=== PATIENT | female | born 1995 ===

== ENCOUNTER 2021-06-23 15:53 | Emergency (ER) | payer BC, SELFPAY ==
[2021-06-23 16:07] VITALS: BP 145/86; PULSE 100; RESP 18; TEMP 36.4; O2SAT 97; BMI 68.2
[2021-06-23 16:43] LABS: Basophils % 0.3 %; Eosinophils # 0.2 10^3/uL (0.0-0.8); Eosinophils % 1.5 %; Hematocrit 40.9 % (37.0-47.0); Hemoglobin 12.3 g/dL (11.5-15.3); Lymphocytes # 2.8 10^3/uL (0.8-4.8); Lymphocytes % 22.8 %; Mean Corpuscular HGB Conc 30.1 g/dL (30.0-36.0); Mean Corpuscular Hemoglobin 22.5 pg (28.0-34.0); Mean Corpuscular Volume 74.8 fl (81-99); Mean Platelet Volume 9.9 fL (7.4-10.4); Monocytes # 0.5 10^3/uL (0.2-0.9); Monocytes % 4.2 %; Neutrophils # 8.59 10^3/uL (1.8-7.7); Neutrophils % 70.6 %; Nucleated Red Blood Cells % 0 %; Platelet Count 370 10^3/cmm (130-400); Red Blood Count 5.47 10^6/uL (4.1-5.3); Red Cell Distribution Width 15.4 % (12.1-15.1); White Blood Count 12.2 10^3/uL (4.0-10.0)
--- NOTE | 2021-06-23 16:46 | USR_ITS ---
PROCEDURE INFORMATION: Exam: US Abdomen, Limited; Right Upper Quadrant Exam date and time: 06/23/2021 5:05 PM Age: 25 years old Clinical indication: Abdominal pain; Prior surgery; Surgery date: 6+ months; Surgery type: Appendectomy; Additional info: Ruq pain. Patient was not NPO for the exam. TECHNIQUE: Imaging protocol: US abdomen. Real time ultrasound with image documentation. Limited exam focused on the right upper quadrant. COMPARISON: No relevant prior studies available. FINDINGS: Liver: No masses are seen. Limited visualization. Gallbladder: Gallbladder not visualized. Common bile duct: Bile duct is normal in caliber where visualized measuring 4 mm. Pancreas: Pancreas is obscured by overlying bowel gas. Right kidney: Normal. No mass. No hydronephrosis. Other findings: Technically difficult study secondary to body habitus of the patient. US/US gall bladder [id number] IMPRESSION: Technically difficult study secondary to the body habitus of the patient. Gallbladder not visualized. Common bile duct is within normal caliber where visualized.
[2021-06-23 16:49] LABS: HCG Qualitative Urine. Negative (Negative)
[2021-06-23 16:58] LABS: Urine Appearance Bloody (CLEAR); Urine Color Red (Yellow)
[2021-06-23] MEDS: ondansetron 2 mg/ML SDV 2 mL 4 MG IVP (16:58)
[2021-06-23 16:59] LABS: Add Urine Microscopic? YES; Bilirubin Urine Neg (Negative); Blood Urine 3+ (Negative); Glucose Urine UA Norm (Normal); Ketones Urine Negative (Negative); Leukocyte Esterase Urine 1+ (Negative); Nitrate Urine Negative (Negative); Protein Urine 1+ (Negative); RBC Urine TOO NUMEROUS TO CNT /hpf (0-2); Squamous Epithelial Cell Urine 0-4 /hpf (0-5); Urobilinogen Urine 1 mg/dL (Negative); WBC Urine 40-55 /hpf (0-5); pH Urine 5 (5-7)
[2021-06-23 17:00] LABS: Add Urine Culture? Yes; Bacteria Urine 1+ /hpf
[2021-06-23 17:02] VITALS: RESP 18
[2021-06-23] MEDS: morphine 4 mg/mL SDV 1 mL 6 MG IVP (17:02)
[2021-06-23 17:09] LABS: Alanine Aminotransferase 21 U/L (0-33); Alkaline Phosphatase 83 IU/L (35-105); Anion Gap 14.1 (5-19); Aspartate Amino Transferase 23 U/L (0-32); Blood Urea Nitrogen 13 mg/dL (6-20); Calcium 9.1 mg/dL (8.5-10.5); Carbon Dioxide 24 mmol/L (22-29); Chloride 104 mmol/L (98-107); Creatine Phosphokinase 108 U/L (26-192); Globulin 3.4 g/dL (1.3-4.6); Glomerular Filtration Rate 122.8 mL/min (90-130); Glucose 123 mg/dL (65-115); Osmolality Calculated 287 mOsm/kg (285-295); Potassium 4.1 mmol/L (3.5-5.1); Sodium 138 mmol/L (136-145); Total Bilirubin 0.3 mg/dL (0.15-1.2); Total Protein 7.4 g/dL (6.6-8.7)
[2021-06-23] MEDS: cephALEXin 500 mg Capsule 1000 MG PO (17:25)
--- NOTE | 2021-06-23 17:30 | CTR_ITS ---
PROCEDURE INFORMATION: Exam: CT Abdomen And Pelvis With Contrast Exam date and time: 06/23/2021 6:19 PM Age: 25 years old Clinical indication: Abdominal pain; Patient HX: C/O epigastric/ruq abd pain since last night; Additional info: Ruq pain TECHNIQUE: Imaging protocol: Computed tomography of the abdomen and pelvis with contrast. Radiation optimization: All CT scans at this facility use at least one of these dose optimization techniques: automated exposure control; mA and/or kV adjustment per patient size (includes targeted exams where dose is matched to clinical indication); or iterative reconstruction. Contrast material: OMNI 300; Contrast volume: 95 ml; Contrast route: INTRAVENOUS (IV); COMPARISON: US gall bladder [id number] 06/23/2021 5:05 PM RADIATION DOSE METRICS: Total DLP (mGy-cm): 1857.51 FINDINGS: Liver: Hepatomegaly. Gallbladder and bile ducts: Normal. No calcified stones. No ductal dilation. Pancreas: Normal. No ductal dilation. Spleen: The spleen enlarged measuring 14.7 cm. Adrenal glands: Normal. No mass. Kidneys and ureters: Normal. No hydronephrosis. Stomach and bowel: Unremarkable. No obstruction. No mucosal thickening. Appendix: There has been an appendectomy. Intraperitoneal space: Unremarkable. No free air. No significant fluid collection. Vasculature: Unremarkable. No abdominal aortic aneurysm. Lymph nodes: Unremarkable. No enlarged lymph nodes. Urinary bladder: Unremarkable as visualized. Reproductive: There is a cyst with benign features which appears to arise from the left ovary measuring 7.1 x 7.6 cm in AP/transverse dimensions. A smaller 2.3 cm cystic lesion likely represents a normal follicle. Bones/joints: Unremarkable. No acute fracture. Soft tissues: There is skin thickening about the umbilicus. CT/CT abdomen pelvis w con* [id number] IMPRESSION: 1. There is hepatomegaly and splenomegaly. 2. There is a 7.6 cm cyst with benign features arising from the left ovary.Further evaluation with prompt non-emergent ultrasound is recommended to characterize. (Reference: Jeferson) REFERENCES: Jeferson et al. Management of Incidental Adnexal Findings on CT and MRI: A White Paper of the ACR Incidental Findings Committee, J Am [place] [facility]. 2020 May;17(2):248-254.
--- NOTE | 2021-06-23 17:30 | W.ED.ABDPA2 ---
HPI - Abdominal Pain General: Chief Complaint: Abdominal Pain Stated Complaint: Upper ABD pain, burning in back Time Seen by Provider: 06/23/21 16:14 History of Present Illness: 25-year-old female developed epigastric and right upper quadrant pain shortly after eating last night. Described as burning, radiating through to her back, associated with nausea. The pain got a little bit better through the night, but it is still sore to the touch. No fever. No history of pancreatitis, ulcer disease, or liver problems. LMP-currently on Review of Systems General: Reports: 10 or more systems reviewed and unremarkable except in HPI and below Physical Exam Const: COMMON NORMALS: no acute distress and patient oriented x3 NUTRITIONAL APPEARANCE: obese Eye: SCLERA: sclerae normal Resp: EFFORT & INSPECTION: No tachypneic, No respiratory distress and No labored GI: COMMON NORMALS: Soft to palpation INSPECTION: Yes normal to inspection PALPATION: Yes Soft to palpation and Yes Tenderness to palpation present (GI) Details: RUQ Neuro: COMMON NORMALS: patient oriented x3 and no focal motor deficits Skin: COMMON NORMALS: no rashes or lesions noted GENERAL SKIN EXAM: no rashes or lesions noted Course Vital Signs: Vital signs: Vital Signs Temperature 97.5 F L 06/23/21 16:07 Pulse Rate 95 06/23/21 19:18 Respiratory Rate 16 06/23/21 19:18 Blood Pressure 122/77 06/23/21 19:18 Pulse Oximetry 100 06/23/21 19:18 MDM - Abdominal Pain Medical Decision Making 25 yo with epigastric and RUQ pain. LFTs and lipase wnl. WBC count slightly elevated, UA likely contaminated b/c of menses. Unable to visualize gallbladder on ultrasound due to body habitus. CT abd/pelvis does not show any acute abnormalities of the gallbladder. She does have a left ovarian cyst which will need further work-up. Discussed low-fat diet. She is planning on undergoing bariatric surgery in the upcoming months. Return precautions discussed. Differential Diagnosis Likely pancreatitis (colecystitis, gastritis, ) Lab Data : 06/23/21 16:25 06/23/21 16:25 Labs/Radiology: Radiology Impressions Gallbladder Ultrasound 06/23/21 16:46 IMPRESSION: Technically difficult study secondary to the body habitus of the patient. Gallbladder not visualized. Common bile duct is within normal caliber where visualized. Abdomen/Pelvis CT 06/23/21 17:30 IMPRESSION: 1. There is hepatomegaly and splenomegaly. 2. There is a 7.6 cm cyst with benign features arising from the left ovary.Further evaluation with prompt non-emergent ultrasound is recommended to characterize. (Reference: Jeferson) REFERENCES: Jeferson et al. Management of Incidental Adnexal Findings on CT and MRI: A White Paper of the ACR Incidental Findings Committee, J Am [place] [facility]. 2019;17(2):248-254. Laboratory Results WBC 12.2 10^3/uL (4.0-10.0) H 06/23/21 16:25 RBC 5.47 10^6/uL (4.1-5.3) H 06/23/21 16:25 Hgb 12.3 g/dL (11.5-15.3) 06/23/21 16:25 Hct 40.9 % (37.0-47.0) 06/23/21 16:25 MCV 74.8 fl (81-99) L 06/23/21 16:25 MCH 22.5 pg (28.0-34.0) L 06/23/21 16:25 MCHC 30.1 g/dL (30.0-36.0) 06/23/21 16:25 RDW 15.4 % (12.1-15.1) H 06/23/21 16:25 Plt Count 370 10^3/cmm (130-400) 06/23/21 16:25 MPV 9.9 fL (7.4-10.4) 06/23/21 16:25 Neut % (Auto) 70.6 % 06/23/21 16:25 Lymph % (Auto) 22.8 % 06/23/21 16:25 [place] % (Auto) 4.2 % 06/23/21 16:25 Eos % (Auto) 1.5 % 06/23/21 16:25 Baso % (Auto) 0.3 % 06/23/21 16:25 Neut # (Auto) 8.59 10^3/uL (1.8-7.7) H 06/23/21 16:25 Lymph # (Auto) 2.8 10^3/uL (0.8-4.8) 06/23/21 16:25 [place] # (Auto) 0.5 10^3/uL (0.2-0.9) 06/23/21 16:25 Eos # (Auto) 0.2 10^3/uL (0.0-0.8) 06/23/21 16:25 Baso # (Auto) 0.0 10^3/uL (0.0-0.1) 06/23/21 16:25 Nucleated RBC % (auto) 0 % 06/23/21 16:25 Nucleated RBCs # 0.0 /100WBC 06/23/21 16:25 Sodium 138 mmol/L (136-145) 06/23/21 16:25 Potassium 4.1 mmol/L (3.5-5.1) 06/23/21 16:25 Chloride 104 mmol/L (98-107) 06/23/21 16:25 Carbon Dioxide 24 mmol/L (22-29) 06/23/21 16:25 Anion Gap 14.1 (5-19) 06/23/21 16:25 BUN 13 mg/dL (6-20) 06/23/21 16:25 Creatinine 0.6 mg/dL (0.5-0.9) 06/23/21 16:25 GFR Calculation 122.8 mL/min (90-130) 06/23/21 16:25 Glucose 123 mg/dL (65-115) H 06/23/21 16:25 Calculated Osmolality 287 mOsm/kg (285-295) 06/23/21 16:25 Calcium 9.1 mg/dL (8.5-10.5) 06/23/21 16:25 Total Bilirubin 0.3 mg/dL (0.15-1.2) 06/23/21 16:25 AST 23 U/L (0-32) 06/23/21 16:25 ALT 21 U/L (0-33) 06/23/21 16:25 Alkaline Phosphatase 83 IU/L (35-105) 06/23/21 16:25 Creatine Kinase 108 U/L (26-192) 06/23/21 16:25 Total Protein 7.4 g/dL (6.6-8.7) 06/23/21 16:25 Albumin 4.0 g/dL (3.5-5.2) 06/23/21 16:25 Globulin 3.4 g/dL (1.3-4.6) 06/23/21 16:25 Lipase 23 U/L (13-60) 06/23/21 16:35 HCG, Qual Negative (Negative) 06/23/21 16:42 Urine Color Red (Yellow) 06/23/21 16:42 Urine Appearance Bloody (CLEAR) A 06/23/21 16:42 Urine pH 5 (5-7) 06/23/21 16:42 Ur Specific [place] 1.020 (1.005-1.030) 06/23/21 16:42 Urine Protein 1+ (Negative) H 06/23/21 16:42 Urine Glucose (UA) Norm (Normal) 06/23/21 16:42 Urine Ketones Negative (Negative) 06/23/21 16:42 Urine Blood 3+ (Negative) H 06/23/21 16:42 Urine Nitrate Negative (Negative) 06/23/21 16:42 Urine Bilirubin Neg (Negative) 06/23/21 16:42 Urine Urobilinogen 1 mg/dL (Negative) H 06/23/21 16:42 Ur Leukocyte Esterase 1+ (Negative) H 06/23/21 16:42 Urine RBC Too numerous to cnt /hpf (0-2) H 06/23/21 16:42 Urine WBC 40-55 /hpf (0-5) H 06/23/21 16:42 Ur Squamous Epith Cells 0-4 /hpf (0-5) H 06/23/21 16:42 Amorphous Sediment Not Reportable 06/23/21 16:42 Urine Bacteria 1+ /hpf (NONE) H 06/23/21 16:42 Discharge Plan Discharge Patient Disposition: Home Clinical Impression: Abdominal pain, Abdominal pain, acute, right upper quadrant, Ovarian cyst Condition: Stable Prescriptions: New Levsin/SL 0.125 mg tablet, sublingual 0.125 mg PO Q6H PRN (Reason: dyspepsia) 10 Days Qty: 30 0RF ondansetron 8 mg tablet,disintegrating 8 mg PO Q8H 3 Days Qty: 9 0RF Rx Instructions: 1st dose 1-2 hr before radiation Discharge Orders: Discharge ED (Routine); Ordered 06/23/21 Ordered By: Karen Kim Referrals: Evelio Zaragoza MD [Staff Physician] - (ER followup: L ovarian Cyst, ) Discharge Diet: Low Fat Discharge Activity: Increase activity as tolerated Patient Instructions: Ovarian Cyst (ED), Low Fat Diet (ED), Abdominal Pain (ED) Activity Restrictions/Additional Instructions: Avoid sugary or fatty foods. Schedule follow-up with SENIOR PROGRAM MANAGER for further work-up on your ovarian cyst. Return immediately to the ER if he develops recurrent or worsening pain, vomiting, fever, or any other sudden changes. Stand Alone Forms: Work/School Release Coding Level of Care Code ED Rehab Therapist for [employer] Fwd Exam Detailed
[2021-06-23 18:07] LABS: Lipase 23 U/L (13-60)
[2021-06-23 18:15] VITALS: BP 153/79; PULSE 75; RESP 20; O2SAT 95
[2021-06-23] MEDS: iodixanol 320 mg/mL 100mL Btl IV (18:21)
[2021-06-23] MEDS: acetaminophen 500 mg Tablet 1000 MG PO (18:59)
[2021-06-23 19:18] VITALS: BP 122/77; PULSE 95; RESP 16; O2SAT 100
== END 2021-06-23 19:25 | disposition home or self-care (01) ==
PROVIDERS: Emergency Provider Family Medicine
DX: R10.11 Right upper quadrant pain (principal); N83.202 Unspecified ovarian cyst, left side
CPT/HCPCS: 74177; 76705; 80053; 81001; 81025; 82550; 83690; 85025; 87086; 96374; 96375; 99284; J2270; J2405; Q9967

== ENCOUNTER 2021-06-25 22:42 | Emergency (ER) | payer BC, SELFPAY ==
[2021-06-25 22:50] VITALS: BP 169/96; PULSE 94; RESP 18; TEMP 36.7; O2SAT 97; BMI 68.2
--- NOTE | 2021-06-25 23:03 | ED_ITS ---
HPI - Abdominal Pain General: Chief Complaint: Abdominal Pain Stated Complaint: abdominal pain Time Seen by Provider: 06/25/21 23:02 History of Present Illness: 25-year-old female comes in today with right upper quadrant abdominal pain. Patient was seen 2 days ago for similar pain and was diagnosed with abdominal pain, probable pancreatitis, and left ovarian cyst. Review of the record it was noted that patient did have an ovarian cyst on the left side. Laboratory values were unremarkable except for large amount of blood in the urine. Patient reported that she was on her menstrual cycle. Patient has had appendectomy in the past. Lipase levels were normal. CT of the abdomen noted a ovarian cyst but no other abnormality. Ultrasound of the gallbladder was negative. Patient appears nontoxic. Patient appears in moderate pain. Associated Symptoms: Reports diarrhea, nausea and vomiting; Denies fever(s) Review of Systems General: Reports: 10 or more systems reviewed and unremarkable except in HPI and below Const: Denies: fever(s) Card: Denies: chest pain Resp: Denies: dyspnea GI: Reports: abdominal pain, nausea, vomiting and diarrhea : Reports: vaginal bleeding; Denies: difficulty voiding Psych: Denies: anxiety Physical Exam Const: COMMON NORMALS: alert HENMT: HEAD & SCALP: normal to inspection MOUTH: Normal oral and palatal mucosa present THROAT: posterior oropharynx normal Neck/C-Spine: COMMON NORMALS: full ROM Resp: COMMON NORMALS: normal respiratory effort and clear to auscultation bilaterally AUSCULTATION: clear to auscultation bilaterally Cardio: COMMON NORMALS: regular rate and regular rhythm RATE: regular rate RHYTHM: regular rhythm GI: AUSCULTATION: Yes Hyperactive bowel sounds present PALPATION: Yes Firmness to palpation present (GI) (ruq), Yes Tenderness to palpation present (GI) Details: LUQ and RUQ, Yes Guarding due to palpation present (GI), No Rigid due to palpation and No Rebound tenderness present : COMMON NORMALS: Yes no CVA tenderness BLADDER/KIDNEY EXAM: Yes no CVA tenderness Back/Pelvis: COMMON NORMALS: no CVA tenderness Extremity: COMMON NORMALS: no pedal edema Neuro: SENSORIUM/ORIENTATION: Yes alert Psych: COMMON NORMALS: cooperative Skin: COMMON NORMALS: no rashes or lesions noted GENERAL SKIN EXAM: no rashes or lesions noted Course Vital Signs: Vital signs: Vital Signs Temperature 98.1 F 06/25/21 22:50 Pulse Rate 85 06/26/21 00:37 Respiratory Rate 17 06/26/21 00:37 Blood Pressure 148/108 06/26/21 00:37 Pulse Oximetry 98 06/26/21 00:37 MDM - Abdominal Pain Medical Decision Making 25-year-old female comes in today with some persistent right upper quadrant abdominal pain. Patient does have some episodes of nausea and vomiting and diarrhea. These episodes been going on for 2 to 3 days. Patient was evaluated in the ER 2 or 3 days ago was diagnosed with abdominal pain and an ovarian cyst. Patient was told that likely she had pancreatitis. On exam abdomen remains tender in the right upper quadrant on palpation. Bowel sounds are hyperactive. Skin is warm and dry. Vital signs are normal except for some mild elevation in blood pressure. Differential diagnosis includes but not limited to pancreatitis, cholecystitis, hepatomegaly. I reviewed the CT scan from 2 days ago and it was noted the patient did have a significantly enlarged liver and pancreas, and a very large ovarian cyst on the left ovary. Laboratory values repeated today showed a mild elevation in white blood cell count of 13,000, CMP was unremarkable, liver enzymes were normal, and lipase was normal. I do not believe patient has pancreatitis. Believe patient's abdominal pain may be due to her enlarged liver. Patient is already on antibiotics for possible urinary tract infection. Repeated urine was done but hematuria was noted which patient at this time is on her menstrual cycle. I reviewed the exam with patient recommended follow-up appointment with BUILDING MAINTENANCE ENGINEER for the large ovarian cyst. Also recommended primary care set up for further evaluation of her enlarged liver. Patient reported understanding and agreed to plan. No signs of in the surgical abdomen was noted at this time. Lab Data : 06/25/21 23:50 06/25/21 23:50 Labs/Radiology: Laboratory Results WBC 13.2 10^3/uL (4.0-10.0) H 06/25/21 23:50 RBC 5.19 10^6/uL (4.1-5.3) 06/25/21 23:50 Hgb 11.6 g/dL (11.5-15.3) 06/25/21 23:50 Hct 38.0 % (37.0-47.0) 06/25/21 23:50 MCV 73.2 fl (81-99) L 06/25/21 23:50 MCH 22.4 pg (28.0-34.0) L 06/25/21 23:50 MCHC 30.5 g/dL (30.0-36.0) 06/25/21 23:50 RDW 15.3 % (12.1-15.1) H 06/25/21 23:50 Plt Count 373 10^3/cmm (130-400) 06/25/21 23:50 MPV 10.3 fL (7.4-10.4) 06/25/21 23:50 Neut % (Auto) 57.7 % 06/25/21 23:50 Lymph % (Auto) 35.5 % 06/25/21 23:50 [place] % (Auto) 4.3 % 06/25/21 23:50 Eos % (Auto) 1.8 % 06/25/21 23:50 Baso % (Auto) 0.3 % 06/25/21 23:50 Neut # (Auto) 7.58 10^3/uL (1.8-7.7) 06/25/21 23:50 Lymph # (Auto) 4.7 10^3/uL (0.8-4.8) 06/25/21 23:50 [place] # (Auto) 0.6 10^3/uL (0.2-0.9) 06/25/21 23:50 Eos # (Auto) 0.2 10^3/uL (0.0-0.8) 06/25/21 23:50 Baso # (Auto) 0.0 10^3/uL (0.0-0.1) 06/25/21 23:50 Nucleated RBC % (auto) 0 % 06/25/21 23:50 Nucleated RBCs # 0.0 /100WBC 06/25/21 23:50 Sodium 137 mmol/L (136-145) 06/25/21 23:50 Potassium 4.3 mmol/L (3.5-5.1) 06/25/21 23:50 Chloride 104 mmol/L (98-107) 06/25/21 23:50 Carbon Dioxide 24 mmol/L (22-29) 06/25/21 23:50 Anion Gap 13.3 (5-19) 06/25/21 23:50 BUN 13 mg/dL (6-20) 06/25/21 23:50 Creatinine 0.6 mg/dL (0.5-0.9) 06/25/21 23:50 GFR Calculation 122.8 mL/min (90-130) 06/25/21 23:50 Glucose 89 mg/dL (65-115) 06/25/21 23:50 Calculated Osmolality 284 mOsm/kg (285-295) L 06/25/21 23:50 Calcium 9.4 mg/dL (8.5-10.5) 06/25/21 23:50 Total Bilirubin 0.3 mg/dL (0.15-1.2) 06/25/21 23:50 AST 14 U/L (0-32) 06/25/21 23:50 ALT 17 U/L (0-33) 06/25/21 23:50 Alkaline Phosphatase 78 IU/L (35-105) 06/25/21 23:50 Total Protein 7.1 g/dL (6.6-8.7) 06/25/21 23:50 Albumin 3.8 g/dL (3.5-5.2) 06/25/21 23:50 Globulin 3.3 g/dL (1.3-4.6) 06/25/21 23:50 Lipase 22 U/L (13-60) 06/25/21 23:50 HCG, Qual Negative (Negative) 06/25/21 23:50 Discharge Plan Discharge Patient Disposition: Home Clinical Impression: Abdominal pain, acute, right upper quadrant, Hepatomegaly Ovarian cyst Qualifiers: Laterality: left Qualified Code(s): N83.202 - Unspecified ovarian cyst, left side Condition: Stable Prescriptions: New hydrocodone-acetaminophen 5-325 mg tablet 1 tab PO Q6H PRN (Reason: Severe Pain (Scale Score 7-10)) Qty: 14 0RF ibuprofen 600 mg tablet 600 mg PO Q6H PRN (Reason: pain) Qty: 60 0RF ondansetron 4 mg tablet,disintegrating 4 mg PO Q8H PRN (Reason: nausea and vomiting) Qty: 7 0RF No Action Levsin/SL 0.125 mg tablet, sublingual 0.125 mg PO Q6H PRN (Reason: dyspepsia) 10 Days Qty: 30 0RF ondansetron 8 mg tablet,disintegrating 8 mg PO Q8H 3 Days Qty: 9 0RF Rx Instructions: 1st dose 1-2 hr before radiation Discharge Orders: Discharge ED (Routine); Ordered 06/26/21 Ordered By: Ashutosh Solitario Discharge Diet: Usual diet Discharge Activity: Increase activity as tolerated Patient Instructions: Abdominal Pain (ED), Opioid Safety Activity Restrictions/Additional Instructions: Drink plenty of fluids. Use medications as directed. Take hydrocodone for severe pain. Use acetaminophen and ibuprofen for mild to moderate pain. Use ondansetron for nausea or vomiting. On your CT scan it was noted that you had an enlarged liver and spleen this may be secondary to a viral infection but I would recommended to be further evaluated with your primary care provider. We also noted on the CT scan a very large ovarian cyst. We recommend that you see a BUILDING MAINTENANCE ENGINEER for further evaluation and treatment. Monitor for fever greater than 100.4, blood in vomit or stool, or new concerns and return to the ER as needed. Coding Level of Care Code ED Packing And Wrapping Supervisor for [employer] Fwd Exam Comprehensive
[2021-06-25] MEDS: ondansetron 2 mg/ML SDV 2 mL 4 MG IVP (23:49)
[2021-06-25] MEDS: ketorolac 30 mg/mL INJ IVP (23:51)
[2021-06-25] MEDS: sodium chloride 0.9% 1,000 ML 999 ML IV (23:51)
[2021-06-25 23:55] VITALS: BP 148/108; PULSE 83; RESP 19; O2SAT 98
[2021-06-26 00:03] VITALS: BP 148/108; PULSE 84; RESP 18; O2SAT 98
[2021-06-26 00:03] LABS: Basophils % 0.3 %; Eosinophils # 0.2 10^3/uL (0.0-0.8); Eosinophils % 1.8 %; Hemoglobin 11.6 g/dL (11.5-15.3); Lymphocytes # 4.7 10^3/uL (0.8-4.8); Lymphocytes % 35.5 %; Mean Corpuscular HGB Conc 30.5 g/dL (30.0-36.0); Mean Corpuscular Hemoglobin 22.4 pg (28.0-34.0); Mean Corpuscular Volume 73.2 fl (81-99); Mean Platelet Volume 10.3 fL (7.4-10.4); Monocytes # 0.6 10^3/uL (0.2-0.9); Monocytes % 4.3 %; Neutrophils # 7.58 10^3/uL (1.8-7.7); Neutrophils % 57.7 %; Nucleated Red Blood Cells % 0 %; Platelet Count 373 10^3/cmm (130-400); Red Blood Count 5.19 10^6/uL (4.1-5.3); Red Cell Distribution Width 15.3 % (12.1-15.1); White Blood Count 13.2 10^3/uL (4.0-10.0)
[2021-06-26 00:28] LABS: Alanine Aminotransferase 17 U/L (0-33); Albumin Level 3.8 g/dL (3.5-5.2); Alkaline Phosphatase 78 IU/L (35-105); Aspartate Amino Transferase 14 U/L (0-32); Blood Urea Nitrogen 13 mg/dL (6-20); Calcium 9.4 mg/dL (8.5-10.5); Carbon Dioxide 24 mmol/L (22-29); Chloride 104 mmol/L (98-107); Globulin 3.3 g/dL (1.3-4.6); Glomerular Filtration Rate 122.8 mL/min (90-130); Glucose 89 mg/dL (65-115); HCG, Serum Qual Negative (Negative); Lipase 22 U/L (13-60); Osmolality Calculated 284 mOsm/kg (285-295); Sodium 137 mmol/L (136-145); Total Bilirubin 0.3 mg/dL (0.15-1.2); Total Protein 7.1 g/dL (6.6-8.7)
[2021-06-26 00:30] LABS: Anion Gap 13.3 (5-19); Potassium 4.3 mmol/L (3.5-5.1)
[2021-06-26 00:37] VITALS: BP 148/108; PULSE 85; RESP 17; O2SAT 98
--- NOTE | 2021-06-26 13:49 | DCPLANNER ---
Addendum entered by Darlyn Anderson 07/24/21 15:25: Patient had a follow up appointment scheduled for 06.28.21 - appointment was cancelled. Addendum entered by Darlyn Anderson 06/27/21 08:40: Patient has a follow up appointment scheduled for Monday, June 28, 2021 at 8:[address] Shelton at [facility]. Clinic will call patient with appointment information. Original Note: manager entry had message to schedule a follow up appointment for patient with [facility]. manager entry called the [facility], spoke with Robert, gave clinic patients information. manager entry was told that patients information would be printed and reviewed. Clinic will call patient with appointment information.
== END 2021-06-26 00:59 | disposition home or self-care (01) ==
PROVIDERS: Emergency Provider Nurse Practitioner Family
DX: N83.202 Unspecified ovarian cyst, left side (principal); R16.0 Hepatomegaly, not elsewhere classified
CPT/HCPCS: 80053; 83690; 84703; 85025; 96361; 96374; 96375; 99284; J1885; J2405; J7030